=== PATIENT | male | born 1960 | race Caucasian/White ===

== ENCOUNTER → 2024-12-23 08:44 | Outpatient (REF) | payer BC, SELFPAY | LOC: EMG 08:44 | PROVIDERS: ATTENDING PHYSICIAN Orthopaedic Surgery; FAMILY PHYSICIAN Internal Medicine | DX: R20.0 Anesthesia of skin (principal); G56.03 Carpal tunnel syndrome, bilateral upper limbs | CPT/HCPCS: 95886; 95911 ==